=== PATIENT | female | born 1945 ===

== ENCOUNTER 2021-09-15 06:52 | Day surgery (SDC) | payer OTHER ==
[~2021-09-15 06:52] MED LIST: ATORVASTATIN CA10 MG PO; D3 + K2 DOTS 11 EACH PO; DIGOXIN0.125 MG/2 PO; TOPROL XL100 M1 PO
== END 2021-09-15 19:35 | disposition home or self-care (01) ==
LOC: CIR.AMB 06:52
PROVIDERS: ATTEND Obstetrics & Gynecology
DX: N85.01 Benign endometrial hyperplasia (principal); Z20.822 Contact with and (suspected) exposure to COVID-19

== ENCOUNTER 2022-04-04 09:45 | Inpatient (IN) | payer OTHER ==
[~2022-04-04] VITALS: Ht 165.1 cm; Wt 59.0 kg
[2022-04-06] MEDS ORDERED: AMLODIPINE BESYL5 MG (08:47)
[2022-04-06] MEDS ORDERED: ATORVASTATIN CA20 MG (08:47)
[2022-04-06] MEDS ORDERED: FAMOTIDINE40 MG (08:48)
[2022-04-06] MEDS ORDERED: PANTOPRAZOLE SO40 MG (08:48)
[2022-04-06] MEDS ORDERED: GLYCOPYRROLATE2 MG (08:48)
[2022-04-06] MEDS ORDERED: RALOXIFENE HCL60 MG (08:48)
[2022-04-06] MEDS ORDERED: LEVOTHYROXINE25 MC1 (08:48)
[2022-04-06] MEDS ORDERED: MELOXICAM15 MG (08:48)
[2022-04-06] MEDS ORDERED: RESTORIL30 MG (08:48)
== END 2022-04-07 11:21 | disposition home or self-care (01) | DRG 743 ==
LOC: O/R 04-06 06:24 → OB/GYN 04-06 06:24 → SURG 04-06 09:45 → OB/GYN 04-06 13:45
PROVIDERS: ADMIT Obstetrics & Gynecology Gynecologic Oncology; ATTEND Obstetrics & Gynecology Gynecologic Oncology
PROC: 0UT74ZZ Resection of Bilateral Fallopian Tubes, Percutaneous Endoscopic Approach (ICD-10-PCS; 2022-04-06)
PROC: 0UT24ZZ Resection of Bilateral Ovaries, Percutaneous Endoscopic Approach (ICD-10-PCS; 2022-04-06)
PROC: 07BC4ZZ Excision of Pelvis Lymphatic, Percutaneous Endoscopic Approach (ICD-10-PCS; 2022-04-06)
PROC: 0UT94ZZ Resection of Uterus, Percutaneous Endoscopic Approach (ICD-10-PCS; principal; 2022-04-06 13:45)
DX: N85.01 Benign endometrial hyperplasia (principal); D25.1 Intramural leiomyoma of uterus; Z20.822 Contact with and (suspected) exposure to COVID-19